=== PATIENT | male | born 1960 | race African-American/Black ===

== ENCOUNTER 2019-11-10 08:30 | Outpatient (CLI) | payer OTHER ==
--- NOTE | 2019-11-10 10:34 | MRI ---
MRI CERVICAL SPINE WITHOUT CONTRAST: History: Neck pain. M54.2. Comparison: None.. Findings: The cerebellar tonsils remain at the level of the foramen magnum. There is some mild edema just poste rior to the oblique arytenoid muscles craniad to the inferior constrictor muscle. Paraspinal muscles are symmetric. No acute fracture. No significant listhesis. Cord signal is normal. Levels are as follows: C2-C3: Mild disc desiccation. Moderate uncinate process hypertrophy. Moderate left and mild right oss eous facet arthropathy. Moderate to severe left and mild right neural foraminal narrowing. C3-C4: Low-grade disc desiccation. Moderate uncinate process hypertrophy. A small central disc osteop hyte complex. Mild hypertrophic facet arthropathy. Moderate left and mild right neural foraminal narrowing. C4-C5: Mild degenerative disc space height loss. Circumferential disc osteophyte complex greatest in the right lateral recess. Mild hypertrophic facet arthropathy. There Is effacement of the potential CSF space with the spinal canal measuring approximately 1 cm. Moderate bilateral neural for aminal narrowing. C5-C6: Moderate degenerative disc space height loss. Large circumferential disc osteophyte complex gr eatest in the central zone and right lateral recess. There is effacement of the ventral CSF space with near cord abutment with the spinal canal measuring approximately 9 mm. There is moderate to silvia re left and mild right neural foraminal narrowing. Moderate hypertrophic facet arthrosis greatest on the left. C6-C7: Moderate degenerative disc space height loss with circumferential disc osteophyte complex. Mil d effacement of ventral CSF space with the spinal canal measuring approximately 1 cm. Moderate bilateral neural foraminal narrowing. C7-T1: Normal disc height. No neural foraminal or spinal canal narrowing. Impression: 1. Moderate spondylosis as described with multilevel neural foraminal and spinal canal narrowing. 2. Some low-grade edema somewhat feathery in appearance posterior to the oblique arytenoid muscle and just craniad to the inferior constrictors of unknown significance. Direct visualization or nonemergent CT may be beneficial if clinically warranted. Transcribed Date/Time: 11/10/2019 10:40 AM
== END 2019-11-10 08:31 | disposition home or self-care (01) ==
LOC: TBSIIMAG 08:30
PROVIDERS: ATTEND Neurological Surgery
DX: M54.2 Cervicalgia (principal); M47.812 Spondylosis without myelopathy or radiculopathy, cervical region; M48.02 Spinal stenosis, cervical region
CPT/HCPCS: 72141

== ENCOUNTER 2019-12-19 19:30 | Outpatient (CLI) | payer OTHER | END 2019-12-19 19:31 | disposition home or self-care (01) | LOC: SLEEPLAB 19:30 | PROVIDERS: ATTEND Internal Medicine | DX: G47.33 Obstructive sleep apnea (adult) (pediatric) (principal); R53.83 Other fatigue; R51 Headache; R40.0 Somnolence; R06.83 Snoring; R35.1 Nocturia; I10 Essential (primary) hypertension; G25.81 Restless legs syndrome | CPT/HCPCS: 95810 ==

== ENCOUNTER 2020-01-10 20:30 | Outpatient (CLI) | payer OTHER | END 2020-01-10 20:31 | disposition home or self-care (01) | LOC: SLEEPLAB 20:30 | PROVIDERS: ATTEND Internal Medicine | DX: G47.33 Obstructive sleep apnea (adult) (pediatric) (principal); R53.83 Other fatigue; R51 Headache; R06.83 Snoring; R35.1 Nocturia; I10 Essential (primary) hypertension | CPT/HCPCS: 95811 ==